=== PATIENT | male | born 1980 | race African-American/Black ===

== ENCOUNTER 2017-06-01 08:18 | Emergency (ER) | payer SELFPAY ==
[~2017-06-01] VITALS: Ht 188 cm; Wt 110.8 kg
[2017-06-01 08:26] VITALS: BP 140/89; PULSE 72; RESP 16; TEMP 97.5; O2SAT 96
[2017-06-01] MEDS ORDERED: NAPHSOL EACH EYE (09:07)
--- NOTE | 2017-06-01 09:11 | PD ---
HPI Chief Complaint: Allergic/Adverse Reaction Time Seen by Provider: 08:59 Travel History International Travel<30 days: No Contact w/Intl Traveler<30days: No Traveled to known affect area: No History of Present Illness HPI This 37-year-old male is complaining of itching and redness of his eyes 4 days. He has a history of allergies. He is been taking Benadryl for his congestion. He has not had fever or chills. He does not have pus in the eyes. ON LICENSE OF [facility] Past Medical History Medical History: Denies Significant Hx Respiratory: Yes (asthma) Influenza Vaccination: No Past Surgical History Surgical History: No Previous Surgery Social History Alcohol Use: No Tobacco Use: No Substance Use: Yes (daily marijuana) Allergies-Medications (Allergen,Severity, Reaction): Coded Allergies: Penicillins (Verified Allergy, Severe, Anaphylaxis, 06/01/17) Reported Meds & Prescriptions Reported Meds & Active Scripts Active Naphcon-A Opth Drops (Naphazoline-Pheniramine Opth Drops) 0.025-0.3 % Soln 1 Drop EACH EYE QID Review of Systems General / Constitutional: No: Fever, Chills Eyes: Positive: Redness, Foreign Body Sensation HENT: Positive: Rhinitis, No: Headaches, Vertigo Cardiovascular: No: Chest Pain or Discomfort, Palpitations Respiratory: Positive: Cough, No: Shortness of Breath Gastrointestinal: No: Vomiting, Diarrhea Genitourinary: No: Urgency Hematologic/Lymphatic: No: Easy Bruising Physical Exam Narrative GENERAL: Well-developed male SKIN: Focused skin assessment warm/dry. HEAD: Atraumatic. Normocephalic. EYES: Pupils equal and round. There is scleral injection. Anterior chambers are clear bilaterally. There is no exudate ENT: No nasal bleeding . There is nasal congestion. Mucous membranes pink and moist. NECK: Trachea midline. No JVD. CARDIOVASCULAR: Regular rate and rhythm. No murmur appreciated. RESPIRATORY: No accessory muscle use. Clear to auscultation. Breath sounds equal bilaterally. GASTROINTESTINAL: Abdomen soft, non-tender, nondistended. Hepatic and splenic margins not palpable. MUSCULOSKELETAL: No obvious deformities. No clubbing. No cyanosis. No edema. NEUROLOGICAL: Awake and alert. No obvious cranial nerve deficits. Motor grossly within normal limits. Normal speech. PSYCHIATRIC: Appropriate mood and affect; insight and judgment normal. Data Data Last Documented VS Vital Signs Date Time Temp Pulse Resp B/P (MAP) Pulse Ox O2 Delivery O2 Flow Rate FiO2 06/01/17 08:36 18 96 Room Air 06/01/17 08:26 97.5 72 140/89 (106) MDM Medical Decision Making Medical Screen Exam Complete: Yes Emergency Medical Condition: Yes Medical Record Reviewed: Yes Differential Diagnosis Differential includes conjunctivitis, allergic conjunctivitis Narrative Course Believe this gentleman has allergic conjunctivitis and he will be treated with Naphcon. I will also recommend that he take Zyrtec once daily Diagnosis Primary Impression: Allergic conjunctivitis Additional Instructions: Take Zyrtec once daily for congestion Scripts Naphazoline-Pheniramine Opth Drops (Naphcon-A Opth Drops) 0.025-0.3 % Soln 1 DROP EACH EYE QID for Decrease eye itching/redness, #1 BOTTLE 0 Refills Prov: Braxton Akhtar MD 06/01/17 Disposition: 01 DISCHARGE HOME Condition: Stable Braxton Akhtar MD Jun 01, 2017 09:11
== END 2017-06-01 09:28 | disposition home or self-care (01) ==
LOC: PHED 08:18
DX: H10.10 Acute atopic conjunctivitis, unspecified eye (principal); J45.909 Unspecified asthma, uncomplicated
CPT/HCPCS: 99282